=== PATIENT | female | born 1955 | race Caucasian/White ===

== ENCOUNTER → 2023-12-06 10:40 | Outpatient (REF) | payer MEDICARE, SELFPAY | LOC: HWWDC 10:40 | PROVIDERS: ATTENDING PHYSICIAN Family Medicine | DX: Z12.31 Encounter for screening mammogram for malignant neoplasm of breast (principal) | CPT/HCPCS: 77063; 77067 ==

== ENCOUNTER → 2024-12-11 14:33 | Outpatient (REF) | payer MEDICARE, SELFPAY | LOC: HWWDC 14:33 | PROVIDERS: ATTENDING PHYSICIAN Family Medicine | DX: Z85.3 Personal history of malignant neoplasm of breast (principal) | CPT/HCPCS: 77063; 77067 ==

== ENCOUNTER → 2025-02-15 08:09 | Outpatient (REF) | payer MEDICARE, SELFPAY | LOC: HWRAD 08:09 | PROVIDERS: ATTENDING PHYSICIAN Family Medicine | DX: M81.0 Age-related osteoporosis without current pathological fracture (principal); Z85.3 Personal history of malignant neoplasm of breast | CPT/HCPCS: 77080 ==